=== PATIENT | female | born 1955 | race Caucasian/White ===

== ENCOUNTER → 2018-06-12 13:52 | Outpatient (CLI) | payer MEDICARE, MEDICAID, SELFPAY ==
[2018-06-12 14:18] LABS: Basophils % 0.3 % (0.1-2.0); Eosinophils % 0.1 % (0.1-12.0); Hemoglobin 14.3 g/dL (12.2-16.2); Lymphocytes # 2.8 K/mm3 (0.7-4.5); Mean Corpuscular HGB Conc 32.5 g/dL (31.8-35.4); Mean Corpuscular Hemoglobin 31.2 pg (27.0-31.2); Mean Platelet Volume 7.7 fl (7.4-10.4); Monocytes # 0.4 K/mm3 (0.1-1.0); Monocytes % 3.5 % (1.7-9.3); Neutrophils # 6.8 K/mm3 (1.8-7.8); Neutrophils % 68.1 % (37.0-80.0); Platelet Count 413 K/mm3 (142-424); Red Blood Count 4.58 M/mm3 (4.20-5.40); White Blood Count 9.9 K/mm3 (4.8-10.8)
[2018-06-12 14:41] LABS: Alanine Aminotransferase 24 U/L (12-78); Albumin Level 3.7 gm/dL (3.4-5.0); Alkaline Phosphatase 123 U/L (46-116); Anion Gap 16.8 mEq/L (5-15); Aspartate Amino Transferase 19 U/L (15-37); Bilirubin,Total 0.3 mg/dL (0.2-1.0); Blood Urea Nitrogen 10 mg/dL (7-18); Calcium 9.6 mg/dL (8.5-10.1); Carbon Dioxide 26 mmol/L (21.0-32.0); Chloride 104 mmol/L (98-107); Chol/HDL Ratio 3.5 (1-3.5); Cholesterol 180 mg/dL (140-200); Creatinine,Serum 0.78 mg/dL (0.55-1.02); Estimated Glomerular Filt Rate 74 ml/min (>60); GFR (African American) 90 ML/MIN (>60); Globulin 3.8 gm/dl (1.3-3.2); Glucose 104 mg/dL (74-106); HDL Cholesterol 52 mg/dL (29-89); LDL Cholesterol 95 mg/dL (0-130); Potassium 4.8 mmoL/L (3.5-5.1); Sodium 142 mmol/L (136-145); T4 (Thyroxine) 10.3 ug/dl (4.7-13.3); Thyroid Stimulating Hormone 0.41 uIU/ml (0.358-3.740); Total Protein,Serum 7.5 gm/dL (6.4-8.2); Triglycerides 167 mg/dL (30-200); VLDL Cholesterol 33 mg/dL (0-40)
[2018-06-13 07:15] LABS: Hep A Ab, IgM Negative (Negative); Hepatitis B Core Antibody IgM Negative (Negative); Hepatitis B Surface Antigen Negative (Negative)
[2018-06-13 07:46] LABS: Hepatitis C Antibody <0.1 s/co ratio (0.0-0.9); Vitamin D 25 Hydroxy 19.2 ng/mL (30.0-100.0)
== END ==
PROVIDERS: Visit Provider Emergency Medicine
DX: R53.83 Other fatigue (principal); R11.0 Nausea; K21.9 Gastro-esophageal reflux disease without esophagitis; I10 Essential (primary) hypertension; F41.9 Anxiety disorder, unspecified; E55.9 Vitamin D deficiency, unspecified; Z72.0 Tobacco use
CPT/HCPCS: 80053; 80061; 80074; 82652; 84436; 84443; 85025

== ENCOUNTER → 2018-07-19 13:11 | Outpatient (CLI) | payer MEDICARE, MEDICAID, SELFPAY ==
--- NOTE | 2018-07-19 13:23 | XR_ITS ---
EXAM: XR cervical spine 5V HISTORY: ITS.REASON: neck pain ORDERING PHYSICIAN: Honorio Rockwell MD PATIENT AGE: 63 years COMPARISON: None FINDINGS: Normal alignment. No fracture or dislocation. No lytic or blastic change. There is mild degenerative disc disease at C5-C6. Normal alignment. There is mild foraminal narrowing on the left C5-C6. The head is slightly tilted to the right with mild cervical curvature on the left. Mild facet arthritic changes are present at C5-C6. IMPRESSION: 1. Degenerative disc disease with mild left-sided foraminal narrowing at C5-C6
--- NOTE | 2018-07-19 13:23 | XR_ITS ---
XR shoulder LT min 2V HISTORY: ITS.REASON: shoulder pain ORDERING PHYSICIAN: Honorio Rockwell MD PATIENT AGE: 63 years Comparison: None FINDINGS: No fracture or dislocation. No lytic or blastic change. There is normal mineralization. The joint spaces are well-preserved. No significant degenerative/arthritic changes. No erosive changes evident. There is lucency involving the proximal to mid shaft of the medullary portion of the humerus. This may only be related to prominent intramedullary canal. Cannot exclude possibility of an intramedullary lesion. Center humerus films for further evaluation. IMPRESSION: 1. Negative shoulder. 2. Possible intramedullary lesion of the proximal humeral shaft. Consider humerus films for further evaluation
--- NOTE | 2018-07-19 13:23 | XR_ITS ---
XR chest 2V HISTORY: Pain ITS.REASON: neck/back pain ORDERING PHYSICIAN: Honorio Rockwell MD PATIENT AGE: 63 years COMPARISON: None FINDINGS: The cardiomediastinal silhouette and pulmonary vascularity are within normal limits. The lungs are clear without infiltrates, suspicious nodules, or pleural effusions. No acute bony abnormalities. IMPRESSION: Negative chest, no acute finding
--- NOTE | 2018-07-19 13:23 | XR_ITS ---
EXAM: XR lumbar spine min 4V HISTORY: Low back pain ITS.REASON: back pain ORDERING PHYSICIAN: Honorio Rockwell MD PATIENT AGE: 63 years COMPARISON: None FINDINGS: Minimal lumbar curvature convex right. There is mild degenerative disc disease L2-S1. Small anterior osteophyte noted superiorly at L5. There are facet arthritic changes at L4-L5 and L5-S1. Mild hypertrophic change involves the SI joints on both sides. No acute fracture or dislocation. No lytic or blastic change IMPRESSION: 1. Mild degenerative disc disease and facet arthritic change. 2. Hypertrophic change of the SI joints
== END ==
PROVIDERS: PCP Emergency Medicine; Visit Provider Emergency Medicine
DX: M25.512 Pain in left shoulder (principal); M54.9 Dorsalgia, unspecified; M54.2 Cervicalgia
CPT/HCPCS: 71046; 72050; 72110; 73030

== ENCOUNTER → 2018-08-13 08:47 | Outpatient (CLI) | payer MEDICARE, MEDICAID, SELFPAY ==
--- NOTE | 2018-08-13 08:54 | MM_ITS ---
MM Dig screening mamm BI w/CAD CAD Screening COMPARISON: None, this is baseline INDICATION: There is no personal or family history of breast cancer TECHNIQUE: Standard CC and MLO images were obtained. R2 CAD reviewed. FINDINGS: Scattered fibroglandular densities are seen throughout both breasts and the findings are fairly symmetrical bilaterally. There is a mole marker on each breast. There is no suspicious lesion and there are no suspicious microcalcifications. IMPRESSION: Fibrofatty parenchyma no suspicious lesion seen BI-RADS Category: 2 Benign Finding(s) RECOMMENDED FOLLOW-UP: 1YR - 1 YEAR FOLLOW-UP (A letter has been sent to the patient regarding results of the study.)
== END ==
PROVIDERS: PCP Emergency Medicine; Visit Provider Emergency Medicine
DX: Z12.31 Encounter for screening mammogram for malignant neoplasm of breast (principal)
CPT/HCPCS: 77067

== ENCOUNTER → 2018-08-15 14:59 | Outpatient (CLI) | payer MEDICARE, MEDICAID, SELFPAY ==
[2018-08-15 16:22] LABS: Amphetamine/Metha Screen,Urine Negative ng/mL (<1000); Barbiturates Screen,Urine Negative ng/mL (<200); Benzodiazepines Screen,Urine Negative ng/mL (<200); Cannabinoid Screen,Urine Negative ng/mL (<50); Cocaine Screen,Urine Negative ng/mL (<300); Methadone Screen,Urine Negative ng/mL (<300); Opiate Screen,Urine Negative ng/mL (<300); Phencyclidine Screen,Urine Negative ng/mL (<25)
== END ==
PROVIDERS: Visit Provider Emergency Medicine
DX: M54.5 Low back pain (principal)
CPT/HCPCS: 80305

== ENCOUNTER → 2018-10-15 13:24 | Outpatient (CLI) | payer MEDICARE, MEDICAID, SELFPAY ==
[2018-10-15 14:57] LABS: Amphetamine/Metha Screen,Urine Negative ng/mL (<1000); Barbiturates Screen,Urine Negative ng/mL (<200); Benzodiazepines Screen,Urine Positive ng/mL (<200); Cannabinoid Screen,Urine Negative ng/mL (<50); Cocaine Screen,Urine Negative ng/mL (<300); Methadone Screen,Urine Negative ng/mL (<300); Opiate Screen,Urine Negative ng/mL (<300); Phencyclidine Screen,Urine Negative ng/mL (<25)
[2018-11-18 15:08] LABS: Alprazolam Negative (Cutoff=100); Benzodiazepines Positive ng/mL (Cutoff=100); Clonazepam Negative (Cutoff=100); Flurazepam Negative (Cutoff=100); Lorazepam Negative (Cutoff=100); Midazolam Negative (Cutoff=100); Temazepam Positive (.); Triazolam Negative (Cutoff=100)
[2018-11-18 17:42] LABS: Opiates Negative ng/mL (Cutoff=100)
== END ==
PROVIDERS: Visit Provider Emergency Medicine
DX: M25.512 Pain in left shoulder (principal); M47.816 Spondylosis without myelopathy or radiculopathy, lumbar region; M54.16 Radiculopathy, lumbar region
CPT/HCPCS: 80305; 80346; 80361; G0480

== ENCOUNTER → 2018-12-10 13:55 | Outpatient (CLI) | payer MEDICARE, MEDICAID, SELFPAY ==
[2018-12-10 15:14] LABS: Amphetamine/Metha Screen,Urine Negative ng/mL (<1000); Barbiturates Screen,Urine Negative ng/mL (<200); Benzodiazepines Screen,Urine Positive ng/mL (<200); Cannabinoid Screen,Urine Negative ng/mL (<50); Cocaine Screen,Urine Negative ng/mL (<300); Methadone Screen,Urine Negative ng/mL (<300); Opiate Screen,Urine Negative ng/mL (<300); Phencyclidine Screen,Urine Negative ng/mL (<25)
[2018-12-16 22:14] LABS: Alprazolam Negative (Cutoff=100); Benzodiazepines Positive ng/mL (Cutoff=100); Clonazepam Negative (Cutoff=100); Flurazepam Negative (Cutoff=100); Lorazepam Negative (Cutoff=100); Midazolam Negative (Cutoff=100); Temazepam Positive (.); Triazolam Negative (Cutoff=100)
[2018-12-16 22:48] LABS: Opiates Negative ng/mL (Cutoff=100)
== END ==
PROVIDERS: Visit Provider Emergency Medicine
DX: M54.16 Radiculopathy, lumbar region (principal); Z79.899 Other long term (current) drug therapy
CPT/HCPCS: 80305; 80346; 80361; G0480

== ENCOUNTER → 2018-12-19 15:39 | Outpatient (CLI) | payer MEDICARE, MEDICAID, SELFPAY ==
--- NOTE | 2018-12-19 15:41 | MR_ITS ---
PROCEDURE: MR LUMBAR SPINE WO CON CLINICAL INDICATION: back pain COMPARISON: [id number] XR lumbar spine min 4V from 07/19/2018 TECHNIQUE: Standard multiplanar multiecho sequences are performed without contrast. 3-D MIP and myelographic images are also rendered and reviewed FINDINGS: Normal alignment. Spinal cord ends at the T12-L1 level. L1-L2: Unremarkable. L2-L3: Mild concentric bulging disc with mild facet ligamentum hypertrophy. L3-L4: Mild facet ligamentum hypertrophy with mild left foraminal narrowing L4-5: Bulging disc along with facet ligamentum hypertrophy with canal stenosis and moderate bilateral lateral recess narrowing and bilateral foraminal narrowing L5-S1: Mild bulging disc with mild facet ligamentum hypertrophy with mild left lateral recess narrowing and mild bilateral foraminal narrowing. IMPRESSION: Mild multilevel lumbar spondylosis. Please see above for detailed description at each level Bulging disc with ligamentum hypertrophy and canal stenosis at L4-5 with bilateral lateral recess and foraminal narrowing. The canal at this area measures approximately 9 mm Dictated by: Reg Carvajal MD 12/20/2018 09:46 Signed by: <Electronically signed by Reg Carvajal MD in [place]> 12/20/2018 09:46
== END ==
PROVIDERS: PCP Emergency Medicine; Visit Provider Emergency Medicine
DX: M54.16 Radiculopathy, lumbar region (principal); M54.5 Low back pain
CPT/HCPCS: 72148; 76376

== ENCOUNTER → 2019-02-08 17:38 | Outpatient (CLI) | payer MEDICARE, MEDICAID, SELFPAY ==
[2019-02-08 18:57] LABS: Amphetamine/Metha Screen,Urine Negative ng/mL (<1000); Barbiturates Screen,Urine Negative ng/mL (<200); Benzodiazepines Screen,Urine Positive ng/mL (<200); Cannabinoid Screen,Urine Negative ng/mL (<50); Cocaine Screen,Urine Negative ng/mL (<300); Methadone Screen,Urine Negative ng/mL (<300); Opiate Screen,Urine Negative ng/mL (<300); Phencyclidine Screen,Urine Negative ng/mL (<25)
== END ==
PROVIDERS: Visit Provider Emergency Medicine
DX: M54.16 Radiculopathy, lumbar region (principal)
CPT/HCPCS: 80305

== ENCOUNTER → 2019-02-25 12:41 | Outpatient (POV) | payer MEDICARE, MEDICAID, SELFPAY ==
[2019-02-25 13:11] VITALS: BP 189/98; PULSE 76; RESP 18; O2SAT 98; BMI 19.0
--- NOTE | 2019-02-26 09:36 | HMH.PMCON ---
Assessment and Plan (1) Spinal stenosis Current visit: Yes Status: Chronic Category: Medical Code(s): M48.00 - Spinal stenosis, site unspecified (2) DDD (degenerative disc disease), lumbar Current visit: No Status: Chronic Category: Medical Code(s): M51.36 - Other intervertebral disc degeneration, lumbar region - Assessment and plan all Dx Assessment and Plan for all problems:: Patient is uninterested in any interventional treatment at this time. Patient is welcome to return if decides to pursue any interventional treatments. We did give her information in regards to the therapies that we offer. Dr. Carranza has reviewed this note and agrees with this plan of care. This note was dictated using voice recognition software and may contain errors or omissions HPI - Data of Consult Consult date: 02/25/19 Requesting Physician: Chiara Crowell APRN Primary Care Provider: Honorio Rockwell MD - Consult Narrative Reason for consult: Back pain History of present illness: Ms. Britt is a 63 year old female who presents today for consultation in regards to her low back pain. Patient has a recent MRI showing ligament of flavum hypertrophy and spinal stenosis. Patient also has lumbar spondylosis. Patient states that she has pain when she standing and walking. I discussed with her common symptomology of spinal stenosis. I also discussed with her our options in regards to treating this including epidurals, the mild procedure, the vertical flex procedure. Patient states that she is uninterested in any of this at this time. She would like to continue taking her Percocet from her primary care physician. Patient has not completed physical therapy. She is uninterested in conservative means of treatment of her pain. CC: Chiara Crowell APRN [facility] History I have reviewed the patient's past medical history: Yes Medical History: Reports:: Anxiety, Deep Vein Thrombosis, Gastroesophageal Reflux Disease(GERD), Hypertension *Have you ever received a pneumonia vaccine?: No *Have you received a flu vaccine this season?: No Other Surgeries: Yes: Other Amputation: No Fractures: No - *Social History Smoking Status: Current every day smoker Tobacco Type: cigarettes # Packs/Day (cigarettes): 1 Alcohol Intake: never Substance Use Type: opiates *Occupational Status:: other Housing: house Household Members: spouse, other *Travel in the last 8 weeks: None - Psychiatric History Pschychiatric History:: Reports:: Anxiety Family Hx:: Cancer, Heart Attack Review of Systems - Review of Systems ROS General: no recent weight change, no fever, no sleep disturbances Respiratory: no cough, no shortness of air, no recurring pulmonary infections Cardiovascular/Peripheral Vascular: No chest pain, No palpitations, no edema, no shortness of breath. Gastrointestinal: no new onset incontinence, normal bowel movements reported Genitourinary: no new onset incontinence Musculoskeletal: Back pain Psychiatric: normal mood/ affect, Neurological: [denies new onset weakness in extremities], [denies new onset balance issues] Meds Home Medications Medication Instructions Recorded Confirmed Type cholecalciferol (vitamin D3) 1,000 1,000 unit PO DAILY 90 Days #90 cap 06/13/18 02/08/19 Rx unit capsule ergocalciferol (vitamin D2) 50,000 50,000 unit PO QWEEK 90 Days #14 06/13/18 02/08/19 Rx unit capsule cap meloxicam 7.5 mg tablet 7.5 mg PO DAILY #30 tab 07/11/18 02/08/19 Rx lisinopril 20 mg tablet 20 mg PO DAILY #90 tab 12/11/18 02/08/19 Rx metoprolol tartrate 25 mg tablet 25 mg PO BID #180 tab 12/11/18 02/08/19 Rx gabapentin 400 mg capsule 400 mg PO TID #90 cap 02/08/19 02/08/19 Rx oxycodone-acetaminophen 5 mg-325 1 tab PO BID PRN #60 tab 02/08/19 02/08/19 Rx mg tablet hydroxyzine pamoate 25 mg capsule 25 mg PO BID #60 cap 02/25/19 Rx ranitidine 150 mg tablet 150 mg PO BID #180 tab 02/25/19 Rx Allergies Aller
--- NOTE | 2019-02-26 09:39 | P.CONS_ITS ---
Assessment and Plan (1) Spinal stenosis Current visit: Yes Status: Chronic Category: Medical Code(s): M48.00 - Spinal stenosis, site unspecified (2) DDD (degenerative disc disease), lumbar Current visit: No Status: Chronic Category: Medical Code(s): M51.36 - Other intervertebral disc degeneration, lumbar region - Assessment and plan all Dx Assessment and Plan for all problems:: Patient is uninterested in any interventional treatment at this time. Patient is welcome to return if decides to pursue any interventional treatments. We did give her information in regards to the therapies that we offer. Dr. Carranza has reviewed this note and agrees with this plan of care. This note was dictated using voice recognition software and may contain errors or omissions HPI - Data of Consult Consult date: 02/25/19 Requesting Physician: Chiara Crwoell APRN Primary Care Provider: Honorio Rockwell MD - Consult Narrative Reason for consult: Back pain History of present illness: Ms. Britt is a 63 year old female who presents today for consultation in regards to her low back pain. Patient has a recent MRI showing ligament of flavum hypertrophy and spinal stenosis. Patient also has lumbar spondylosis. Patient states that she has pain when she standing and walking. I discussed with her common symptomology of spinal stenosis. I also discussed with her our options in regards to treating this including epidurals, the mild procedure, the vertical flex procedure. Patient states that she is uninterested in any of this at this time. She would like to continue taking her Percocet from her primary care physician. Patient has not completed physical therapy. She is uninterested in conservative means of treatment of her pain. CC: Chiara Crowell APRN [facility] History I have reviewed the patient's past medical history: Yes Medical History: Reports:: Anxiety, Deep Vein Thrombosis, Gastroesophageal Reflux Disease(GERD), Hypertension *Have you ever received a pneumonia vaccine?: No *Have you received a flu vaccine this season?: No Other Surgeries: Yes: Other Amputation: No Fractures: No - *Social History Smoking Status: Current every day smoker Tobacco Type: cigarettes # Packs/Day (cigarettes): 1 Alcohol Intake: never Substance Use Type: opiates *Occupational Status:: other Housing: house Household Members: spouse, other *Travel in the last 8 weeks: None - Psychiatric History Pschychiatric History:: Reports:: Anxiety Family Hx:: Cancer, Heart Attack Review of Systems - Review of Systems ROS General: no recent weight change, no fever, no sleep disturbances Respiratory: no cough, no shortness of air, no recurring pulmonary infections Cardiovascular/Peripheral Vascular: No chest pain, No palpitations, no edema, no shortness of breath. Gastrointestinal: no new onset incontinence, normal bowel movements reported Genitourinary: no new onset incontinence Musculoskeletal: Back pain Psychiatric: normal mood/ affect, Neurological: [denies new onset weakness in extremities], [denies new onset balance issues] Meds Home Medications Medication Instructions Recorded Confirmed Type cholecalciferol (vitamin D3) 1,000 1,000 unit PO DAILY 90 Days #90 cap 06/13/18 02/08/19 Rx unit capsule ergocalciferol (vitamin D2) 50,000 50,000 unit PO QWEEK 90 Days #14 06/13/18 02/08/19 Rx unit capsule cap meloxicam 7.5 mg tablet 7.5 mg P
== END ==
PROVIDERS: PCP Emergency Medicine; Visit Provider Clinical Nurse Specialist Family Health
DX: M48.00 Spinal stenosis, site unspecified (principal); M51.36 Other intervertebral disc degeneration, lumbar region
CPT/HCPCS: 99202

== ENCOUNTER → 2019-03-06 14:20 | Outpatient (CLI) | payer MEDICARE, MEDICAID, SELFPAY ==
[2019-03-06 15:13] LABS: Amphetamine/Metha Screen,Urine Negative ng/mL (<1000); Barbiturates Screen,Urine Negative ng/mL (<200); Benzodiazepines Screen,Urine Negative ng/mL (<200); Cannabinoid Screen,Urine Negative ng/mL (<50); Cocaine Screen,Urine Negative ng/mL (<300); Methadone Screen,Urine Negative ng/mL (<300); Opiate Screen,Urine Negative ng/mL (<300); Phencyclidine Screen,Urine Negative ng/mL (<25)
[2019-03-14 23:08] LABS: Oxycodone Positive (.); Oxymorphone Positive (.)
[2019-03-15 06:48] LABS: Oxycodone Confirm 376 ng/mL (Cutoff=100); Oxymorphone Confirm 691 ng/mL (Cutoff=100)
== END ==
PROVIDERS: Visit Provider Emergency Medicine
DX: Z79.899 Other long term (current) drug therapy (principal)
CPT/HCPCS: 80305; 80365

== ENCOUNTER → 2019-04-03 13:31 | Outpatient (CLI) | payer MEDICARE, MEDICAID, SELFPAY ==
[2019-04-03 14:01] LABS: Amphetamine/Metha Screen,Urine Negative ng/mL (<1000); Barbiturates Screen,Urine Negative ng/mL (<200); Benzodiazepines Screen,Urine Negative ng/mL (<200); Cannabinoid Screen,Urine Negative ng/mL (<50); Cocaine Screen,Urine Negative ng/mL (<300); Methadone Screen,Urine Negative ng/mL (<300); Opiate Screen,Urine Negative ng/mL (<300); Phencyclidine Screen,Urine Negative ng/mL (<25)
[2019-04-09 16:06] LABS: Oxycodone NEGATIVE; Oxymorphone NEGATIVE
== END ==
PROVIDERS: Visit Provider Emergency Medicine
DX: M54.16 Radiculopathy, lumbar region (principal); Z79.899 Other long term (current) drug therapy
CPT/HCPCS: 80305; 80365

== ENCOUNTER → 2019-04-18 07:42 | Outpatient (CLI) | payer MEDICARE, MEDICAID, SELFPAY ==
--- NOTE | 2019-04-18 07:43 | CA_ITS ---
APPROVED REPORT Assessment Rn: Lizbeth Washington RVT Study Quality: Good Indications: Hypertension Risk Factors Hypertension Renal Artery Doppler Origin (R) 93.4/ cm/sec Proximal (R) 107.9/ cm/sec Mid (R) 118.2/ cm/sec Distal (R) 82.0/ cm/sec Renal Aorta Ratio (R) 0.66 Segmental A. (R) 43.9/14.9 cm/sec RI: 0.66 Segmental A. Sup (R) 43.9/14.9 cm/sec Segmental A. Mid (R) 43.6/11.4 cm/sec Segmental A. Inf (R) 41.5/10.4 cm/sec Origin (L) 130.1/ cm/sec Proximal (L) 152.0/ cm/sec Mid (L) 92.4/ cm/sec Distal (L) 113.7/ cm/sec Renal Aorta Ratio (L) 0.85 Segmental A. (L) 59.7/23.3 cm/sec RI: 0.60 Segmental A. Sup (L) 53.0/17.1 cm/sec Segmental A. Mid (L) 59.7/23.3 cm/sec Segmental A. Inf (L) 39.2/15.8 cm/sec Renal Measurements Kidney Size (R) 9.1x6.5 cm Cortical Thickness (R) 1.0 cm Kidney Size (L) 8.2x4.5 cm Cortical Thickness (L) 1.4 cm Conclusion Study suggests no evidence of bilateral renal artery stenosis. There is a 1.6cm cyst lower pole of left kidney. Electronically signed by : Reg Carvajal MD 04/19/2019 17:15:42
== END ==
PROVIDERS: PCP Emergency Medicine; Visit Provider Emergency Medicine
DX: I10 Essential (primary) hypertension (principal)
CPT/HCPCS: 93976

== ENCOUNTER → 2019-05-08 13:22 | Outpatient (CLI) | payer MEDICARE, MEDICAID, SELFPAY ==
[2019-05-08 15:43] LABS: Amphetamine/Metha Screen,Urine Negative ng/mL (<1000); Barbiturates Screen,Urine Negative ng/mL (<200); Benzodiazepines Screen,Urine Negative ng/mL (<200); Cannabinoid Screen,Urine Negative ng/mL (<50); Cocaine Screen,Urine Negative ng/mL (<300); Methadone Screen,Urine Negative ng/mL (<300); Opiate Screen,Urine Positive ng/mL (<300); Phencyclidine Screen,Urine Negative ng/mL (<25)
== END ==
PROVIDERS: Visit Provider Emergency Medicine
DX: M54.16 Radiculopathy, lumbar region (principal)
CPT/HCPCS: 80305

== ENCOUNTER → 2019-06-17 10:44 | Outpatient (POV) | payer MEDICARE, MEDICAID, SELFPAY ==
[2019-06-17 11:09] VITALS: BP 143/91; PULSE 85; RESP 18; O2SAT 99; BMI 20.1
--- NOTE | 2019-06-17 11:39 | HMH.PAINSOAP ---
[facility] Pain Management SOAP Note Subjective:: Patient is a pleasant 64-year-old white female who presents today for follow-up. She is being treated for low back pain with lumbar radiculopathy symptoms. Patient was seen in the clinic in the past for complaints of low back pain with radiation into her bilateral lower extremities. She did have an MRI that did show ligamentum flavum hypertrophy, spinal stenosis and she did display neurogenic claudication symptoms at that time. Unfortunately, the patient is not interested in any type of interventional procedures at that time. She is back today with consideration of possible injections. She rates her pain a 7 out of 10 today. Her pain is worse with standing and walking and does improve with sitting. She has been taking anti-inflammatories and has had physical therapy for greater than 6 weeks, most notably within the last 2 months. She does continue with a home stretching program. Review of Systems General: No recent weight changes, no fever, no sleep disturbances Respiratory: No cough, no shortness of air, no recurring pulmonary infections Cardiovascular/peripheral vascular: No chest pain, no palpitations, no edema, no shortness of breath Gastrointestinal: No new onset incontinence, normal bowel movements reported Genitourinary: No new onset incontinence Musculoskeletal: Low back pain Psychiatric: Normal mood/affect Neurological: [Denies weakness in extremities], [denies balance issues] Objective:: Physical exam General: Alert and oriented x3, no acute distress, pleasant and cooperative, [on room air] Lungs: Respirations even and unlabored, symmetrical chest expansion Eyes: PERRL Musculoskeletal: Flexion and extension of lumbar spine somewhat guarded secondary to pain, deep tendon reflexes normal, strength in upper and lower extremities [5/5], slightly antalgic gait noted Neurological: Speech clear, speech language pathologist prn equal, no gross sensory deficit Assessment:: Degenerative disc disease lumbar spine with lumbar radiculopathy symptoms, spinal stenosis with neurogenic claudication symptoms Plan:: Patient I had a long discussion concerning epidural steroid injection. She does have some reservation concerning injections, however, the patient would like to proceed with a lumbar epidural steroid injection at L4-L5. She says that she needs to get some type of relief. She is not on any anticoagulation therapy. She is continue with anti-inflammatories and a home stretching program. We will see her back in the clinic after her injection to reassess her symptoms. Patient has been instructed to contact clinic if she has any concerns before her next appointment. Dr. Carranza has reviewed this note and agrees with this plan of care. This note was dictated using voice recognition software and make contain errors or omissions. [facility] History I have reviewed the patient's past medical history: Yes Medical History: Reports:: Anxiety, Deep Vein Thrombosis, Gastroesophageal Reflux Disease(GERD), Hypertension *Have you ever received a pneumonia vaccine?: Yes *Have you received a flu vaccine this season?: Yes Other Surgeries: Yes: Other Amputation: No Fractures: No - *Social History Smoking Status: Current every day smoker Tobacco Type: cigarettes # Packs/Day (cigarettes): 1 Alcohol Intake: never Substance Use Type: opiates *Occupational Status:: other Housing: house Household Members: spouse, other *Travel in the last 8 weeks: None - Psychiatric History Pschychiatric History:: Reports:: Anxiety Family Hx:: Cancer, Heart Attack
== END ==
PROVIDERS: PCP Emergency Medicine; Visit Provider Clinical Nurse Specialist Family Health
DX: M51.16 Intervertebral disc disorders with radiculopathy, lumbar region (principal); M48.062 Spinal stenosis, lumbar region with neurogenic claudication
CPT/HCPCS: 99212

== ENCOUNTER → 2019-06-25 13:22 | Outpatient (CLI) | payer MEDICARE, MEDICAID, SELFPAY ==
[2019-06-25 13:33] LABS: Basophils % 0.5 % (0.1-2.0); Eosinophils % 0.1 % (0.1-12.0); Hematocrit 41.9 % (37.0-47.0); Hemoglobin 13.3 g/dL (12.2-16.2); Lymphocytes # 3.3 K/mm3 (0.7-4.5); Lymphocytes % 45.4 % (10-50); Mean Corpuscular HGB Conc 31.8 g/dL (31.8-35.4); Mean Corpuscular Hemoglobin 30.6 pg (27.0-31.2); Mean Corpuscular Volume 96.1 fl (81-99); Mean Platelet Volume 9.4 fl (7.4-10.4); Monocytes # 0.4 K/mm3 (0.1-1.0); Monocytes % 4.8 % (1.7-9.3); Neutrophils # 3.6 K/mm3 (1.8-7.8); Neutrophils % 49.2 % (37.0-80.0); Platelet Count 458 K/mm3 (142-424); Red Blood Count 4.36 M/mm3 (4.20-5.40); Red Cell Distribution Width 15.3 % (11.5-17.5); White Blood Count 7.4 K/mm3 (4.8-10.8)
[2019-06-25 13:53] LABS: Alanine Aminotransferase 12 U/L (12-78); Albumin Level 4.3 g/dl (3.5-5.0); Albumin/Globulin Ratio 1.6 (1.1-1.8); Alkaline Phosphatase 80 U/L (38-126); Anion Gap 10.8 mEq/L (5-15); Aspartate Amino Transferase 25 U/L (14-36); Bilirubin,Total 0.2 mg/dl (0.2-1.3); Blood Urea Nitrogen 14 mg/dl (7-17); Carbon Dioxide 28 mmol/L (22.0-30.0); Chloride 105 mmol/L (98-107); Chol/HDL Ratio 3.1 (1-3.5); Cholesterol 200 mg/dl (140-200); Estimated Glomerular Filt Rate 84 ml/min (>60); GFR (African American) 101 ML/MIN (>60); Globulin 2.7 g/dL (1.3-3.2); Glucose 101 mg/dl (74-100); HDL Cholesterol 65 mg/dl (40-60); Potassium 4.8 mmoL/L (3.5-5.1); Sodium 139 mmol/L (136-145); Triglycerides 169 mg/dl (30-150); VLDL Cholesterol 34 mg/dL (0-40)
[2019-06-25 14:04] LABS: Direct LDL Cholesterol 98.94 mg/dL (100-129)
[2019-06-25 14:10] LABS: Free T4 (Free Thyroxine) 1.35 ng/dl (0.78-2.19)
[2019-06-25 14:24] LABS: Thyroid Stimulating Hormone 3.17 uIU/mL (0.465-4.68)
[2019-06-25 14:51] LABS: Barbiturates Screen,Urine Negative ng/ml (<200); Benzodiazepines Screen,Urine Negative ng/ml (<200)
[2019-06-25 14:52] LABS: Cannabinoid Screen,Urine Negative ng/ml (<50); Cocaine Screen,Urine Negative ng/ml (<300)
[2019-06-25 14:53] LABS: Methadone Screen,Urine Negative ng/ml (<300)
[2019-06-25 14:54] LABS: Opiate Screen,Urine Negative ng/ml (<300); Phencyclidine Screen,Urine Negative ng/ml (<25)
[2019-06-25 15:26] LABS: Amphetamine/Metha Screen,Urine Negative ng/ml (<1000)
[2019-06-27 06:40] LABS: Vitamin D 25 Hydroxy 13.4 ng/mL (30.0-100.0)
[2019-07-01 07:05] LABS: Oxycodone (GC/MS) 273 ng/mL (Cutoff=100)
[2019-07-01 10:03] LABS: Opiates Negative (Cutoff=100); Oxymorphone (GC/MS) 856 ng/mL (Cutoff=100)
== END ==
PROVIDERS: Visit Provider Emergency Medicine
DX: M54.16 Radiculopathy, lumbar region (principal); I10 Essential (primary) hypertension; Z79.899 Other long term (current) drug therapy; E55.9 Vitamin D deficiency, unspecified
CPT/HCPCS: 80053; 80061; 80305; 80361; 80365; 82652; 84439; 84443; 85025; G0480

== ENCOUNTER → 2019-12-26 11:40 | Outpatient (POV) | payer MEDICARE, MEDICAID, SELFPAY ==
[2019-12-26 12:08] VITALS: BP 130/74; PULSE 62; RESP 18; O2SAT 98; BMI 20.1
--- NOTE | 2019-12-26 12:51 | P.CONS_ITS ---
[facility] Pain Management SOAP Note Subjective:: Patient is a 64-year-old white female who presents today for follow-up. This is her third visit to our office. Patient states she is still on interested in interventional means of treatment in regards to her pain she rates her pain a 6 out of 10. 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 Patient and I discussed the minimally invasive lumbar decompression along with epidural injections. She is uninterested. She is currently on Percocet from her primary care physician. She has not recently been to physical therapy. She is not interested in any other conservative means of treatment other than oral narcotic medication. Patient states that she cannot stand for over 15 minutes and she cannot walk for over 50 feet without sitting down secondary to pain. ROS General: no recent weight change, no fever, no sleep disturbances Respiratory: no cough, no shortness of air, no recurring pulmonary infections Cardiovascular/Peripheral Vascular: No chest pain, No palpitations, no edema, no shortness of breath. Gastrointestinal: no new onset incontinence, normal bowel movements reported Genitourinary: no new onset incontinence Musculoskeletal: Back pain, leg pain Psychiatric: normal mood/ affect, [denies depression], [denies anxiety] Neurological: Weakness in bilateral lower extremities when walking and standing, [denies new onset balance issues] Objective:: Physical Exam General: Alert and oriented x3, no acute distress, pleasant and cooperative, [on room air] Lungs: Resps E/U, Symmetrical chest expansion, Eyes: PERRL Musculoskeletal: Flexion and extension of lumbar spine somewhat guarded secondary to pain, deep tendon reflexes normal, strength in upper and lower extremities [5/5], gait noted Neurological: speech clear, campus police officer equal, no gross sensory deficits Assessment:: Degenerative disc disease lumbar spine lumbar radiculopathy spinal stenosis and neurogenic claudication, ligamentum flavum hypertrophy Plan:: This is the patient's third visit to our office she still is uninterested in interventional pain management. I discussed with her that we are available if she would like to return to discuss treatment. I do believe she would benefit greatly from a lumbar epidural steroid injection along with a minimally invasive lumbar decompression potentially in the future. At this time patient only wants to take oral narcotic medications as a plan of care. She is not had physical therapy recently. Dr. Carranza has reviewed this note and agrees with this plan of care. This note was dictated using voice recognition software and may contain errors or omissions [facility] History I have reviewed the patient's past medical history: Yes Medical History: Reports:: Anxiety, Deep Vein Thrombosis, Gastroesophageal Reflux Disease(GERD), Hypertension *Have you ever received a pneumonia vaccine?: No *Have you received a flu vaccine this season?: No Other Surgeries: Yes: Colonoscopy, Other Amputation: No Fractures: No - *Social History Smoking Status: Current every day smoker Tobacco Type: cigarettes # Packs/Day (cigarettes): 1 Alcohol Intake: never Substance Use Type: opiates, crack/cocaine *Occupational Status:: other Housing: house Household Members: spouse, other *Travel in the last 8 weeks: None - Psychiatric History Pschychiatric History:: Reports:: Anxiety Family Hx:: Cancer, Heart Attack
== END ==
PROVIDERS: PCP Emergency Medicine; Visit Provider Clinical Nurse Specialist Family Health
DX: M48.062 Spinal stenosis, lumbar region with neurogenic claudication (principal); M51.16 Intervertebral disc disorders with radiculopathy, lumbar region; M46.06 Spinal enthesopathy, lumbar region
CPT/HCPCS: 99212

== ENCOUNTER → 2020-02-26 11:02 | Outpatient (CLI) | payer MEDICARE, MEDICAID, SELFPAY ==
[2020-02-26 12:05] VITALS: PULSE 78; PULSE 80
== END ==
PROVIDERS: PCP Emergency Medicine; Visit Provider Emergency Medicine
DX: R06.00 Dyspnea, unspecified (principal)
CPT/HCPCS: 94060; 94618; 94640; 94727; 94729

== ENCOUNTER → 2020-03-12 11:04 | Outpatient (CLI) | payer MEDICARE, MEDICAID, SELFPAY ==
--- NOTE | 2020-03-12 11:18 | CT_ITS ---
PROCEDURE: CT LUNG SCREENING CLINICAL INDICATION: ldct Current smoker 30 pack year smoking history COMPARISON: No exams were available for comparison TECHNIQUE: The exam was performed on a GE Light Speed [address] scanner using 2.90 mGy CTDI. A low dose helical CT CHEST was performed on a multi-detector scanner. All CT scans at the facility use one or more dose reduction, viz: automated exposure control, ma/kV adjustment per patient size (including targeted exams where dose is matched to indication, i.e. head), or iterative reconstruction technique. The LDCT was performed in a facility that meets the criteria for the screening program. Data regarding this exam was submitted to ACR which is an approved registry. The order for this exam indicates that it came as a result of a lung cancer screening counseling shard decision-making visit that included all the elements required of such a visit including smoking cessation. The radiologist interpreting this exam meets the CMS criteria for the LDCT lung cancer screening program. The exam is reported using the Lung-RADS classification scale and reported to the ACR registry. NOTE: This study was performed for the specific purposes of lung cancer screening and is not an alternative to diagnostic chest CT. RADIATION DOSE: CTDI vol(CT dose Index-volume) = 2.90mG DLP (Dose Length Product) = 96.38 mGcm FINDINGS: COPD changes with scattered areas of scarring. Scattered ill-defined opacities are present in the upper lobes nonspecific and may be inflammatory or infectious. Scarring is present in the lingula and apices. There is on the OTHER FINDINGS: Coronary artery calcifications. There is minimal wedging of T5 and T6 which may be chronic... IMPRESSION: Lung-RADS Category 3 Probably Benign Follow-up: [address] Chest without and with contrast regarding the multiple ill-defined opacities in the upper lobes. Dictated by: Reg Carvajal MD 03/28/2020 15:04 Reg Carvajal MD in [place] 03/28/2020 15:04
== END ==
PROVIDERS: PCP Emergency Medicine; Visit Provider Internal Medicine Pulmonary Disease
DX: Z87.891 Personal history of nicotine dependence (principal); Z12.2 Encounter for screening for malignant neoplasm of respiratory organs

== ENCOUNTER → 2020-08-03 14:47 | Outpatient (CLI) | payer MEDICARE, MEDICAID, SELFPAY ==
[2020-08-03 15:04] LABS: Amphetamine/Metha Screen,Urine Negative ng/ml (<1000)
[2020-08-03 15:05] LABS: Barbiturates Screen,Urine Negative ng/ml (<200); Benzodiazepines Screen,Urine Negative ng/ml (<200)
[2020-08-03 15:06] LABS: Cannabinoid Screen,Urine Negative ng/ml (<50)
[2020-08-03 15:07] LABS: Cocaine Screen,Urine Negative ng/ml (<300); Methadone Screen,Urine Negative ng/ml (<300)
[2020-08-03 15:08] LABS: Opiate Screen,Urine Negative ng/ml (<300); Phencyclidine Screen,Urine Negative ng/ml (<25)
== END ==
PROVIDERS: Visit Provider Emergency Medicine
DX: M54.16 Radiculopathy, lumbar region (principal)
CPT/HCPCS: 80305

== ENCOUNTER → 2020-09-04 07:29 | Outpatient (CLI) | payer MEDICARE, MEDICAID, SELFPAY ==
--- NOTE | 2020-09-04 | CA_ITS ---
APPROVED REPORT Exam: Pharmacologic Technologist: tiana hudosn, Ht: 5 ft 2 in Wt: 113 lbs BSA: 1.50 m2 HR: 66 bpm BP: 166/93 mmHg Rhythm: NSR Indications: CP Medical History Medications: Amlodipine,,,,, Lisinopril,,,,, Omeprazole,,,,, Metoprolol,,,,, Gabapentin,,,,, Albuterol,,,,, Vitamin D,,,,, OxYCODONE,,,,, PaROXETINE,,,,, FluTICASONE,,,,, Hydroxyzine,,,,, Allergies: NKA Cardiac Risk Factors: HTN, Hyperlipidemia, Smoking Stress Test Details Test: LEXISCAN HR Resting HR: 69 bpm Max Heart Rate (APMHR): 153.401742 bpm Max HR Achieved: 115 bpm Target HR (85% APMHR): 130.846578 bpm % of APMHR: 75.16 Recovery HR: 88 bpm BP Resting BP: 166/93 mmHg Max BP: 175/97 mmHg Recovery BP: 173.0/99.0 mmHg ECG Resting ECG: NSR Clinical Exercise duration: 04:01 min Highest Stage Achieved: Exercise capacity: 1.0 METs Stress ECG Conclusion No chest pain. No arrhythmia or ectopy. Less than 1.5mm ST Segment changes. Non-diagnostic. Electronically signed by : Jeramy Cruz, 09/04/2020 13:54:01
--- NOTE | 2020-09-04 07:29 | NM_ITS ---
APPROVED REPORT Exam: Nuclear Stress Test Indication: chest pain..short of breath..fatigue Patient Location: Outpatient Stress Tech: Alison Leah AL Tech:RON Manzano RT(R)(N) Ht: 5 ft 2 in Wt: 112 lbs Bra Size: 34b HR: 66 bpm BP: 166/93 mmHg BSA: 1.49 m2 BMI: 20.4 History: chest pain..short of breath..fatigue Procedure: Patient received a 0.4 mg of intravenous Lexiscan, resting heart rate 66 bpm, resting blood pressure 166/93 mmHg, with Lexiscan maximum heart rate achived was 92 bpm which is 85 % of the maximum predicted heart rate and blood pressure was 174/93 mmHg. With Lexiscan, patient denied any complaint of chest pain. Electrocardiogram Resting electrocardiogram showed sinus rhythm, with Lexiscan there is less than 1.[address] segment depression noted from the baseline EKG. The EKG portion of the Lexiscan is nondiagnostic. Cardiac Stress and Resting SPECT Images: Cardiac Stress and Resting SPECT images were obtained using technetium 99m Myoview 28.4 mCi stress and 10.26 mCi at rest. Gated SPECT for analysis of segmental wall motion and calculation of the ejection fraction also done. Prone images were also obtained. Cardiac stress and resting SPECT images show uniform myocardial activity without segmental perfusion abnormality, computer derived ejection fraction is 55% with no regional wall motion abnormality, right ventricle is normal size and contractility. Conclusion: 1. The EKG portion of the Lexiscan is nondiagnostic. 2. No scintigraphic evidence of reversible ischemia seen, computer derived ejection fraction is 55% with no regional wall motion abnormality, right ventricle is normal size and contractility. 3. Normal Lexiscan Myoview study. Electronically signed by : Jeramy Cruz, 09/04/2020 13:57:23
== END ==
PROVIDERS: PCP Emergency Medicine; Visit Provider Emergency Medicine
DX: R07.9 Chest pain, unspecified (principal)
CPT/HCPCS: 78452; 93017; A9502; J2785

== ENCOUNTER → 2020-09-25 14:08 | Outpatient (CLI) | payer MEDICARE, MEDICAID, SELFPAY ==
[2020-09-25 16:53] LABS: Amphetamine/Metha Screen,Urine Negative ng/ml (<1000)
[2020-09-25 16:54] LABS: Barbiturates Screen,Urine Negative ng/ml (<200)
[2020-09-25 16:55] LABS: Benzodiazepines Screen,Urine Negative ng/ml (<200); Cannabinoid Screen,Urine Positive ng/ml (<50)
[2020-09-25 16:56] LABS: Cocaine Screen,Urine Negative ng/ml (<300); Methadone Screen,Urine Negative ng/ml (<300)
[2020-09-25 16:57] LABS: Opiate Screen,Urine Positive ng/ml (<300)
[2020-09-25 16:58] LABS: Phencyclidine Screen,Urine Negative ng/ml (<25)
== END ==
PROVIDERS: Visit Provider Emergency Medicine
DX: M54.16 Radiculopathy, lumbar region (principal)
CPT/HCPCS: 80305

== ENCOUNTER → 2020-11-20 13:57 | Outpatient (CLI) | payer MEDICARE, MEDICAID, SELFPAY ==
[2020-11-20 14:31] LABS: Barbiturates Screen,Urine Negative ng/ml (<200); Benzodiazepines Screen,Urine Negative ng/ml (<200)
[2020-11-20 14:32] LABS: Amphetamine/Metha Screen,Urine Negative ng/ml (<1000)
[2020-11-20 14:33] LABS: Methadone Screen,Urine Negative ng/ml (<300)
[2020-11-20 14:34] LABS: Cannabinoid Screen,Urine Positive ng/ml (<50); Cocaine Screen,Urine Negative ng/ml (<300)
[2020-11-20 14:36] LABS: Opiate Screen,Urine Negative ng/ml (<300)
[2020-11-20 15:03] LABS: Phencyclidine Screen,Urine Negative ng/ml (<25)
== END ==
PROVIDERS: Visit Provider Emergency Medicine
DX: M54.16 Radiculopathy, lumbar region (principal)
CPT/HCPCS: 80305

== ENCOUNTER → 2021-01-15 14:45 | Outpatient (CLI) | payer MEDICARE, MEDICAID, SELFPAY ==
[2021-01-15 16:15] LABS: Benzodiazepines Screen,Urine Negative ng/ml (<200)
[2021-01-15 16:16] LABS: Amphetamine/Metha Screen,Urine Negative ng/ml (<1000); Barbiturates Screen,Urine Negative ng/ml (<200)
[2021-01-15 16:17] LABS: Methadone Screen,Urine Negative ng/ml (<300)
[2021-01-15 16:18] LABS: Cannabinoid Screen,Urine Negative ng/ml (<50); Cocaine Screen,Urine Negative ng/ml (<300)
[2021-01-15 16:19] LABS: Opiate Screen,Urine Positive ng/ml (<300)
[2021-01-15 16:20] LABS: Phencyclidine Screen,Urine Negative ng/ml (<25)
== END ==
PROVIDERS: Visit Provider Emergency Medicine
DX: M54.16 Radiculopathy, lumbar region (principal)
CPT/HCPCS: 80305

== ENCOUNTER → 2021-08-13 19:50 | Outpatient (CLI) | payer MEDICARE, MEDICAID, SELFPAY ==
[2021-08-13 14:03] LABS: Amphetamine/Metha Screen,Urine Negative ng/ml (<1000)
[2021-08-13 14:04] LABS: Barbiturates Screen,Urine Negative ng/ml (<200); Benzodiazepines Screen,Urine Negative ng/ml (<200)
[2021-08-13 14:05] LABS: Cannabinoid Screen,Urine Negative ng/ml (<50); Cocaine Screen,Urine Negative ng/ml (<300)
[2021-08-13 14:06] LABS: Methadone Screen,Urine Negative ng/ml (<300)
[2021-08-13 14:07] LABS: Opiate Screen,Urine Negative ng/ml (<300); Phencyclidine Screen,Urine Negative ng/ml (<25)
== END ==
PROVIDERS: PCP Emergency Medicine; Visit Provider Emergency Medicine
DX: Z79.899 Other long term (current) drug therapy (principal)
CPT/HCPCS: 80305

== ENCOUNTER → 2021-10-11 16:50 | Outpatient (CLI) | payer MEDICARE, MEDICAID, SELFPAY ==
[2021-10-11 14:20] LABS: Amphetamine/Metha Screen,Urine Negative ng/ml (<1000); Barbiturates Screen,Urine Negative ng/ml (<200)
[2021-10-11 14:21] LABS: Benzodiazepines Screen,Urine Negative ng/ml (<200); Cannabinoid Screen,Urine Positive ng/ml (<50)
[2021-10-11 14:22] LABS: Cocaine Screen,Urine Negative ng/ml (<300)
[2021-10-11 14:23] LABS: Methadone Screen,Urine Negative ng/ml (<300); Opiate Screen,Urine Negative ng/ml (<300)
[2021-10-11 14:24] LABS: Phencyclidine Screen,Urine Negative ng/ml (<25)
== END ==
PROVIDERS: Visit Provider Emergency Medicine
DX: Z79.899 Other long term (current) drug therapy (principal)
CPT/HCPCS: 80305

== ENCOUNTER → 2021-12-06 07:13 | Outpatient (CLI) | payer MEDICARE, MEDICAID, SELFPAY ==
[2021-12-06 17:27] LABS: Basophils # 0.1 K/mm3 (0-0.2); Eosinophils % 0.3 % (0.1-12.0); Hematocrit 46.5 % (37.0-47.0); Hemoglobin 14.1 g/dL (12.2-16.2); Lymphocytes # 3.2 K/mm3 (0.7-4.5); Lymphocytes % 47.3 % (10-50); Mean Corpuscular HGB Conc 30.2 g/dL (31.8-35.4); Mean Corpuscular Hemoglobin 28.4 pg (27.0-31.2); Mean Corpuscular Volume 94.1 fl (81-99); Mean Platelet Volume 9.7 fl (7.4-10.4); Monocytes # 0.3 K/mm3 (0.1-1.0); Monocytes % 4.7 % (1.7-9.3); Neutrophils # 3.1 K/mm3 (1.8-7.8); Neutrophils % 45.6 % (37.0-80.0); Platelet Count 388 K/mm3 (142-424); Red Blood Count 4.94 M/mm3 (4.20-5.40); Red Cell Distribution Width 18.1 % (11.5-17.5); White Blood Count 6.7 K/mm3 (4.8-10.8)
[2021-12-06 17:36] LABS: Alanine Aminotransferase 11 U/L (12-78); Albumin Level 4.2 g/dl (3.5-5.0); Albumin/Globulin Ratio 1.6 (1.1-1.8); Alkaline Phosphatase 89 U/L (38-126); Anion Gap 9.3 mEq/L (5-15); Aspartate Amino Transferase 27 U/L (14-36); Bilirubin,Total 0.3 mg/dl (0.2-1.3); Blood Urea Nitrogen 10 mg/dl (7-17); Calcium 9.5 mg/dl (8.4-10.2); Carbon Dioxide 28 mmol/L (22.0-30.0); Chloride 106 mmol/L (98-107); Chol/HDL Ratio 3.5 (1-3.5); Cholesterol 220 mg/dl (140-200); Estimated Glomerular Filt Rate 99 ml/min (>60); GFR (African American) 120 ML/MIN (>60); Globulin 2.6 g/dL (1.3-3.2); Glucose 108 mg/dl (74-100); HDL Cholesterol 62 mg/dl (40-60); Potassium 4.3 mmoL/L (3.5-5.1); Sodium 139 mmol/L (136-145); Total Protein,Serum 6.8 g/dl (6.3-8.2); Triglycerides 143 mg/dl (30-150); VLDL Cholesterol 29 mg/dL (0-40)
[2021-12-06 17:51] LABS: Free T4 (Free Thyroxine) 1.34 ng/dl (0.78-2.19)
[2021-12-06 17:52] LABS: 25-OH Vitamin D, Total 32.9 ng/mL (30-100)
[2021-12-06 18:05] LABS: Thyroid Stimulating Hormone 0.91 uIU/mL (0.465-4.68)
[2021-12-08 08:35] LABS: Direct LDL Cholesterol 126 mg/dL (100-129)
== END ==
PROVIDERS: PCP Emergency Medicine; Visit Provider Emergency Medicine
DX: E55.9 Vitamin D deficiency, unspecified (principal); I10 Essential (primary) hypertension; Z79.899 Other long term (current) drug therapy; Z68.1 Body mass index [BMI] 19.9 or less, adult
CPT/HCPCS: 80053; 80061; 82306; 84439; 84443; 85025

== ENCOUNTER → 2022-02-04 09:40 | Outpatient (CLI) | payer MEDICARE, MEDICAID, SELFPAY ==
[2022-02-04 19:03] LABS: Amphetamine/Metha Screen,Urine Negative ng/ml (<1000)
[2022-02-04 19:04] LABS: Barbiturates Screen,Urine Negative ng/ml (<200)
[2022-02-04 19:07] LABS: Benzodiazepines Screen,Urine Negative ng/ml (<200); Cocaine Screen,Urine Negative ng/ml (<300)
[2022-02-04 19:08] LABS: Methadone Screen,Urine Negative ng/ml (<300)
[2022-02-04 19:09] LABS: Opiate Screen,Urine Positive ng/ml (<300); Phencyclidine Screen,Urine Negative ng/ml (<25)
[2022-02-04 20:40] LABS: Cannabinoid Screen,Urine Negative ng/ml (<50)
== END ==
PROVIDERS: PCP Emergency Medicine; Visit Provider Emergency Medicine
DX: M25.512 Pain in left shoulder (principal)
CPT/HCPCS: 80305

== ENCOUNTER → 2022-04-05 09:05 | Outpatient (CLI) | payer MEDICARE, MEDICAID, SELFPAY ==
[2022-04-05 15:37] LABS: Amphetamine/Metha Screen,Urine Negative ng/ml (<1000)
[2022-04-05 15:38] LABS: Barbiturates Screen,Urine Negative ng/ml (<200); Benzodiazepines Screen,Urine Negative ng/ml (<200)
[2022-04-05 15:39] LABS: Cannabinoid Screen,Urine Negative ng/ml (<50)
[2022-04-05 15:40] LABS: Cocaine Screen,Urine Negative ng/ml (<300)
[2022-04-05 15:41] LABS: Methadone Screen,Urine Negative ng/ml (<300); Opiate Screen,Urine Negative ng/ml (<300)
[2022-04-05 15:43] LABS: Phencyclidine Screen,Urine Negative ng/ml (<25)
== END ==
PROVIDERS: PCP Emergency Medicine; Visit Provider Emergency Medicine
DX: M25.512 Pain in left shoulder (principal); Z79.899 Other long term (current) drug therapy
CPT/HCPCS: 80305

== ENCOUNTER → 2022-06-06 09:05 | Outpatient (CLI) | payer MEDICARE, MEDICAID, SELFPAY ==
[2022-06-06 15:41] LABS: Barbiturates Screen,Urine Negative ng/ml (<200)
[2022-06-06 15:42] LABS: Benzodiazepines Screen,Urine Negative ng/ml (<200); Cannabinoid Screen,Urine Positive ng/ml (<50)
[2022-06-06 15:43] LABS: Cocaine Screen,Urine Negative ng/ml (<300)
[2022-06-06 15:45] LABS: Methadone Screen,Urine Negative ng/ml (<300); Opiate Screen,Urine Positive ng/ml (<300)
[2022-06-06 15:46] LABS: Phencyclidine Screen,Urine Negative ng/ml (<25)
[2022-06-08 18:46] LABS: Amphetamine/Metha Screen,Urine Negative ng/ml (<1000)
== END ==
PROVIDERS: PCP Emergency Medicine; Visit Provider Emergency Medicine
DX: M25.512 Pain in left shoulder (principal); Z79.899 Other long term (current) drug therapy
CPT/HCPCS: 80305

== ENCOUNTER → 2022-07-01 15:37 | Outpatient (CLI) | payer MEDICARE, MEDICAID, SELFPAY ==
[2022-07-01 16:11] LABS: Basophils # 0.1 K/mm3 (0-0.2); Basophils % 0.6 % (0.1-2.0); Eosinophils % 0.2 % (0.1-12.0); Hematocrit 45.8 % (37.0-47.0); Hemoglobin 14.7 g/dL (12.2-16.2); Lymphocytes # 3.5 K/mm3 (0.7-4.5); Lymphocytes % 46.2 % (10-50); Mean Corpuscular Hemoglobin 31.7 pg (27.0-31.2); Mean Corpuscular Volume 99.1 fl (81-99); Mean Platelet Volume 9.6 fl (7.4-10.4); Monocytes # 0.4 K/mm3 (0.1-1.0); Neutrophils # 3.6 K/mm3 (1.8-7.8); Neutrophils % 47.9 % (37.0-80.0); Platelet Count 412 K/mm3 (142-424); Red Blood Count 4.63 M/mm3 (4.20-5.40); Red Cell Distribution Width 16.6 % (11.5-17.5); White Blood Count 7.6 K/mm3 (4.8-10.8)
[2022-07-01 16:37] LABS: Alanine Aminotransferase 23 U/L (12-78); Albumin Level 4.6 g/dl (3.5-5.0); Albumin/Globulin Ratio 1.7 (1.1-1.8); Alkaline Phosphatase 91 U/L (38-126); Anion Gap 12.6 mEq/L (5-15); Aspartate Amino Transferase 30 U/L (14-36); Bilirubin,Total 0.4 mg/dl (0.2-1.3); Blood Urea Nitrogen 14 mg/dl (7-17); Calcium 9.3 mg/dl (8.4-10.2); Carbon Dioxide 31 mmol/L (22.0-30.0); Chloride 97 mmol/L (98-107); Estimated Glomerular Filt Rate 62 ml/min (>60); GFR (African American) 75 ML/MIN (>60); Globulin 2.7 g/dL (1.3-3.2); Glucose 91 mg/dl (74-100); Potassium 4.6 mmoL/L (3.5-5.1); Sodium 136 mmol/L (136-145); Total Protein,Serum 7.3 g/dl (6.3-8.2)
[2022-07-01 17:00] LABS: Barbiturates Screen,Urine Negative ng/ml (<200); Benzodiazepines Screen,Urine Negative ng/ml (<200)
[2022-07-01 17:01] LABS: Cannabinoid Screen,Urine Positive ng/ml (<50); Cocaine Screen,Urine Negative ng/ml (<300)
[2022-07-01 17:02] LABS: Methadone Screen,Urine Negative ng/ml (<300)
[2022-07-01 17:03] LABS: Opiate Screen,Urine Positive ng/ml (<300)
[2022-07-01 17:04] LABS: Phencyclidine Screen,Urine Negative ng/ml (<25)
[2022-07-01 17:07] LABS: Amphetamine/Metha Screen,Urine Negative ng/ml (<1000)
[2022-07-01 17:23] LABS: Thyroid Stimulating Hormone 3.15 uIU/mL (0.465-4.68)
[2022-07-01 17:59] LABS: Vitamin B12 292 pg/mL (239-931)
== END ==
PROVIDERS: Nurse Practitioner Family; PCP Emergency Medicine; Visit Provider Emergency Medicine
DX: R25.1 Tremor, unspecified (principal); Z72.0 Tobacco use; Z79.899 Other long term (current) drug therapy
CPT/HCPCS: 80053; 80305; 82607; 82746; 84443; 85025

== ENCOUNTER → 2022-08-22 14:00 | Outpatient (CLI) | payer MEDICARE, MEDICAID, SELFPAY ==
[2022-08-22 14:05] LABS: Phencyclidine Screen,Urine Negative ng/ml (<25)
[2022-08-22 14:12] LABS: Amphetamine/Metha Screen,Urine Negative ng/ml (<1000); Barbiturates Screen,Urine Negative ng/ml (<200)
[2022-08-22 14:13] LABS: Benzodiazepines Screen,Urine Negative ng/ml (<200); Cannabinoid Screen,Urine Positive ng/ml (<50)
[2022-08-22 14:16] LABS: Opiate Screen,Urine Positive ng/ml (<300)
[2022-08-22 14:17] LABS: Cocaine Screen,Urine Negative ng/ml (<300); Methadone Screen,Urine Negative ng/ml (<300)
== END ==
PROVIDERS: PCP Emergency Medicine; Visit Provider Emergency Medicine
DX: M25.512 Pain in left shoulder (principal)
CPT/HCPCS: 80305

== ENCOUNTER → 2022-10-19 15:25 | Outpatient (CLI) | payer MEDICARE, MEDICAID, SELFPAY ==
[2022-10-19 20:32] LABS: Amphetamine/Metha Screen,Urine Negative ng/ml (<1000)
[2022-10-19 20:33] LABS: Barbiturates Screen,Urine Negative ng/ml (<200); Benzodiazepines Screen,Urine Negative ng/ml (<200)
[2022-10-19 20:34] LABS: Cannabinoid Screen,Urine Positive ng/ml (<50)
[2022-10-19 20:35] LABS: Cocaine Screen,Urine Negative ng/ml (<300); Methadone Screen,Urine Negative ng/ml (<300)
[2022-10-19 20:36] LABS: Opiate Screen,Urine Positive ng/ml (<300)
[2022-10-19 20:37] LABS: Phencyclidine Screen,Urine Negative ng/ml (<25)
== END ==
PROVIDERS: PCP Emergency Medicine; Visit Provider Emergency Medicine
DX: M25.512 Pain in left shoulder (principal)
CPT/HCPCS: 80305

== ENCOUNTER → 2023-01-06 08:52 | Outpatient (CLI) | payer MEDICARE, MEDICAID, SELFPAY ==
--- NOTE | 2023-01-06 08:53 | CT_ITS ---
FINAL REPORT TECHNIQUE: The patient was injected with IV contrast. Axial images were obtained of the chest by computed tomography. Precontrast images were also obtained. This study was performed with techniques to keep radiation doses as low as reasonably achievable (ALARA). Individualized dose reduction techniques using automated exposure control or adjustment of mA and/or kV according to the patient's size were employed. CLINICAL HISTORY: copd COMPARISON: 03/12/2020 CT low-dose FINDINGS: CT OF THE CHEST WITH AND WITHOUT CONTRAST: There is no axillary mass or adenopathy. There is no mediastinal or hilar mass. Heart size is normal. There is no pericardial or pleural effusion identified. There is no suspicious pulmonary nodule or infiltrate identified. There is mild emphysema and mild scarring. IMPRESSION: Mild emphysema and mild scarring. Reviewed, Interpreted and Dictated by Rodrigo Rush III, MD Transcribed by Sloane Cabral Authenticated and . [facility]
--- NOTE | 2023-01-06 08:53 | MM_ITS ---
PROCEDURE INFORMATION: Exam: MG Bilateral Screening 3D Mammography Exam date and time: 01/06/2023 10:01 AM Age: 67 years old Clinical indication: Screening examination; No personal or family history of breast cancer. The patient refused to complete the examination. There is no right CC view submitted. TECHNIQUE: Imaging protocol: Bilateral Screening tomosynthesis and 2D mammography including computer-aided detection (CAD) when performed. COMPARISON: MG SCBI MM Dig screening mamm BI w/CAD 08/13/2018 9:08 AM FINDINGS: MAMMOGRAPHY: Breast composition: The breast tissue is composed of scattered areas of fibroglandular density. Mass: None. Architectural distortion: None. Calcifications: No suspicious calcifications. Asymmetric density: None. Skin thickening: None. Axillary adenopathy: None. IMPRESSION: No mammographic evidence of malignancy given the limitation as described above. Annual screening is recommended unless otherwise clinically indicated. ASSESSMENT: BI-RADS Category 1: Negative
[2023-01-06 09:23] LABS: Blood Urea Nitrogen 11 mg/dl (7-17); Estimated Glomerular Filt Rate 83 ml/min (>60); GFR (African American) 100 ML/MIN (>60)
== END ==
LOC: RAD 08:52
PROVIDERS: PCP Emergency Medicine; Visit Provider Emergency Medicine
DX: J44.9 Chronic obstructive pulmonary disease, unspecified (principal); Z12.31 Encounter for screening mammogram for malignant neoplasm of breast
CPT/HCPCS: 36415; 71270; 77063; 77067; 82565; 84520; Q9967

== ENCOUNTER → 2023-04-10 23:08 | Outpatient (CLI) | payer MEDICARE, MEDICAID, SELFPAY ==
[2023-04-10 19:00] LABS: Microalbumin < 6.000 mg/L (0-16.7)
[2023-04-10 19:02] LABS: Amphetamine/Metha Screen,Urine Negative ng/ml (<1000)
[2023-04-10 19:03] LABS: Barbiturates Screen,Urine Negative ng/ml (<200)
[2023-04-10 19:04] LABS: Benzodiazepines Screen,Urine Negative ng/ml (<200)
[2023-04-10 19:05] LABS: Cannabinoid Screen,Urine Positive ng/ml (<50); Cocaine Screen,Urine Negative ng/ml (<300)
[2023-04-10 19:06] LABS: Methadone Screen,Urine Negative ng/ml (<300); Opiate Screen,Urine Negative ng/ml (<300)
[2023-04-10 19:08] LABS: Phencyclidine Screen,Urine Negative ng/ml (<25)
[2023-04-10 19:18] LABS: Creatinine,Urine Random 30 mg/dL (Not Estab.)
== END ==
PROVIDERS: PCP Internal Medicine; Visit Provider Internal Medicine
DX: Z79.899 Other long term (current) drug therapy (principal); M25.512 Pain in left shoulder; I10 Essential (primary) hypertension; F41.1 Generalized anxiety disorder; J44.9 Chronic obstructive pulmonary disease, unspecified; E55.9 Vitamin D deficiency, unspecified; Z68.1 Body mass index [BMI] 19.9 or less, adult; Z72.0 Tobacco use; E11.9 Type 2 diabetes mellitus without complications; E66.9 Obesity, unspecified
CPT/HCPCS: 80305; 82043; 82570

== ENCOUNTER 2023-05-17 12:37 | Outpatient (CLI) | payer MEDICARE, MEDICAID, SELFPAY ==
[2023-05-17 14:19] LABS: Benzodiazepines Screen,Urine Negative ng/ml (<200)
[2023-05-17 14:20] LABS: Amphetamine/Metha Screen,Urine Negative ng/ml (<1000); Barbiturates Screen,Urine Negative ng/ml (<200)
[2023-05-17 14:21] LABS: Cannabinoid Screen,Urine Positive ng/ml (<50)
[2023-05-17 14:22] LABS: Cocaine Screen,Urine Negative ng/ml (<300); Methadone Screen,Urine Negative ng/ml (<300)
[2023-05-17 14:23] LABS: Opiate Screen,Urine Positive ng/ml (<300)
[2023-05-17 14:24] LABS: Phencyclidine Screen,Urine Negative ng/ml (<25)
[2023-05-21 11:22] LABS: Alprazolam Negative (Cutoff=100); Benzodiazepines Positive ng/mL (Cutoff=100); Clonazepam Positive (.); Clonazepam Confirm 1334 ng/mL (Cutoff=100); Flurazepam Negative (Cutoff=100); Lorazepam Negative (Cutoff=100); Midazolam Negative (Cutoff=100); Opiates Negative (Cutoff=100); Oxycodone (GC/MS) 2492 ng/mL (Cutoff=100); Oxymorphone (GC/MS) >3000 ng/mL (Cutoff=100); Temazepam Negative (Cutoff=100); Triazolam Negative (Cutoff=100)
== END 2023-05-17 23:59 ==
PROVIDERS: PCP Family Medicine; Visit Provider Family Medicine
DX: Z79.899 Other long term (current) drug therapy (principal)
CPT/HCPCS: 80307; 80346; 80361; 80365; G0480

== ENCOUNTER 2023-05-23 14:37 | Outpatient (CLI) | payer MEDICARE, MEDICAID, SELFPAY ==
--- NOTE | 2023-05-23 14:47 | XR_ITS ---
FINAL REPORT CLINICAL HISTORY: mobility impingement COMPARISON: None FINDINGS: RIGHT SHOULDER: 3 views of the right shoulder were obtained. There is no acute fracture or dislocation. The joint spaces are intact. There is minimal hypertrophic change of the acromioclavicular joint. There is no soft tissue abnormality. IMPRESSION: No acute fracture Reviewed, Interpreted and Dictated by Dwain Oliva MD Transcribed by Jory Crockett Authenticated and [facility]
== END 2023-05-23 23:59 ==
LOC: RAD 14:38
PROVIDERS: PCP Internal Medicine; Visit Provider Internal Medicine
DX: Z74.09 Other reduced mobility (principal)
CPT/HCPCS: 73030

== ENCOUNTER 2023-07-03 11:36 | Outpatient (CLI) | payer MEDICARE, MEDICAID, SELFPAY ==
[2023-07-03 11:44] LABS: Basophils # 0.1 K/mm3 (0-0.2); Basophils % 0.6 % (0.1-2.0); Eosinophils % 0.2 % (0.1-12.0); Hematocrit 42.8 % (37.0-47.0); Hemoglobin 13.7 g/dL (12.2-16.2); Lymphocytes % 32.5 % (10-50); Mean Corpuscular Volume 96.9 fl (81-99); Mean Platelet Volume 8.7 fl (7.4-10.4); Monocytes # 0.5 K/mm3 (0.1-1.0); Monocytes % 5.1 % (1.7-9.3); Neutrophils # 5.8 K/mm3 (1.8-7.8); Neutrophils % 61.6 % (37.0-80.0); Platelet Count 330 K/mm3 (142-424); Red Blood Count 4.42 M/mm3 (4.20-5.40); Red Cell Distribution Width 17.1 % (11.5-17.5); White Blood Count 9.4 K/mm3 (4.8-10.8)
[2023-07-03 12:19] LABS: Alanine Aminotransferase 13 U/L (12-78); Albumin Level 4.2 g/dl (3.5-5.0); Albumin/Globulin Ratio 1.8 (1.1-1.8); Alkaline Phosphatase 81 U/L (38-126); Anion Gap 10.5 mEq/L (5-15); Aspartate Amino Transferase 23 U/L (14-36); Bilirubin,Total 0.4 mg/dl (0.2-1.3); Blood Urea Nitrogen 13 mg/dl (7-17); Calcium 9.5 mg/dl (8.4-10.2); Carbon Dioxide 33 mmol/L (22.0-30.0); Chloride 101 mmol/L (98-107); Chol/HDL Ratio 2.9 (1-3.5); Cholesterol 178 mg/dl (140-200); Estimated Glomerular Filt Rate 99 ml/min (>60); GFR (African American) 120 ML/MIN (>60); Globulin 2.4 g/dL (1.3-3.2); Glucose 97 mg/dl (74-100); HDL Cholesterol 62 mg/dl (40-60); Potassium 4.5 mmoL/L (3.5-5.1); Sodium 140 mmol/L (136-145); Total Protein,Serum 6.6 g/dl (6.3-8.2); Triglycerides 187 mg/dl (30-150); VLDL Cholesterol 37 mg/dL (0-40)
[2023-07-03 12:30] LABS: Direct LDL Cholesterol 70.49 mg/dL (100-129)
== END 2023-07-03 23:59 ==
LOC: LAB.DROPOF 11:37
PROVIDERS: PCP Internal Medicine; Visit Provider Internal Medicine
DX: R53.83 Other fatigue (principal); E78.5 Hyperlipidemia, unspecified; Z79.899 Other long term (current) drug therapy
CPT/HCPCS: 80053; 80061; 85025

== ENCOUNTER 2023-08-30 19:37 | Outpatient (CLI) | payer MEDICARE, MEDICAID, SELFPAY ==
[2023-08-30 21:45] LABS: 25-OH Vitamin D, Total < 12.8 ng/mL (30-100)
== END 2023-08-30 23:59 | disposition home or self-care (01) ==
LOC: LAB.DROPOF 19:38
PROVIDERS: PCP Internal Medicine; Visit Provider Internal Medicine
DX: E55.9 Vitamin D deficiency, unspecified (principal); Z79.899 Other long term (current) drug therapy
CPT/HCPCS: 82306

== ENCOUNTER 2023-12-28 08:54 | Outpatient (CLI) | payer MEDICARE, MEDICAID, SELFPAY ==
[2023-12-28 19:38] LABS: 25-OH Vitamin D, Total 113 ng/mL (30-100)
== END 2023-12-28 23:59 | disposition home or self-care (01) ==
LOC: LAB.DROPOF 12-29 10:59
PROVIDERS: PCP Internal Medicine; Visit Provider Internal Medicine
DX: R53.83 Other fatigue (principal); E55.9 Vitamin D deficiency, unspecified
CPT/HCPCS: 82306; 84443

== ENCOUNTER 2024-04-11 14:26 | Outpatient (CLI) | payer MEDICARE, MEDICAID, SELFPAY ==
[2024-04-11 18:30] LABS: 25-OH Vitamin D, Total 56.5 ng/mL (30-100)
== END 2024-04-11 23:59 | disposition home or self-care (01) ==
LOC: LAB.DROPOF 04-12 10:45
PROVIDERS: PCP Internal Medicine; Visit Provider Internal Medicine
DX: E55.9 Vitamin D deficiency, unspecified (principal)
CPT/HCPCS: 82306

== ENCOUNTER 2024-07-10 13:03 | Outpatient (CLI) | payer MEDICARE, MEDICAID, SELFPAY ==
--- NOTE | 2024-07-10 13:48 | CT_ITS ---
FINAL REPORT TECHNIQUE: Thin section axial images were obtained from the lung apices to the upper abdomen by computed tomography. Reformatted images were obtained and reviewed. This study was performed with techniques to keep radiation doses al low as reasonably achievable (ALARA). Individualized dose reduction techniques using automated exposure control or adjustment of mA and/or kV according to the patient's size were employed. CLINICAL HISTORY: lung cancer screening current smoker 1/2ppd x53 years COMPARISON: CT of the chest 01/06/2023 FINDINGS: CHEST CT LOW DOSE 69-year-old female, current smoker, 42-pumv-kysu history. CTDI vol (mGy): 2.9 DLP (mGy-cm): 110.20 There is no axillary adenopathy. There is no mediastinal or hilar mass or adenopathy. The heart is normal in size. Mild coronary artery calcifications are identified. There is no pericardial or pleural effusion. There is mild emphysema and mild pulmonary scarring. Lung window images demonstrate no suspicious infiltrate or nodule. Limited images of the upper abdomen are unremarkable. IMPRESSION: Lung-RADS category 1. Recommend 12 month follow up low dose chest CT. Reviewed, Interpreted and Dictated by Dwain Oliva MD Transcribed by Jory Crockett Authenticated and [facility]
== END 2024-07-10 23:59 | disposition home or self-care (01) ==
LOC: RT 13:04
PROVIDERS: PCP Internal Medicine; Visit Provider Internal Medicine Pulmonary Disease
DX: R06.09 Other forms of dyspnea (principal); F17.210 Nicotine dependence, cigarettes, uncomplicated
CPT/HCPCS: 71271; 94010

== ENCOUNTER 2024-08-07 11:40 | Outpatient (CLI) | payer MEDICARE, MEDICAID, SELFPAY ==
[2024-08-07 18:53] LABS: Basophils % 0.2 % (0.1-2.0); Eosinophils % 0.5 % (0.1-12.0); Hematocrit 36.8 % (37.0-47.0); Hemoglobin 11.3 g/dL (12.2-16.2); Lymphocytes # 2.1 K/mm3 (0.7-4.5); Lymphocytes % 36.4 % (10-50); Mean Corpuscular HGB Conc 30.7 g/dL (31.8-35.4); Mean Corpuscular Hemoglobin 29.7 pg (27.0-31.2); Mean Corpuscular Volume 96.8 fl (81-99); Mean Platelet Volume 10.7 fl (7.4-10.4); Monocytes # 0.4 K/mm3 (0.1-1.0); Neutrophils # 3.3 K/mm3 (1.8-7.8); Neutrophils % 56.7 % (37.0-80.0); Nucleated Red Blood Cells # 0 10^3/uL; Nucleated Red Blood Cells % 0 %; Platelet Count 272 K/mm3 (142-424); Red Cell Distribution Width 14.3 % (11.5-17.5); White Blood Count 5.9 K/mm3 (4.8-10.8)
[2024-08-07 19:03] LABS: Alanine Aminotransferase 11 U/L (12-78); Albumin Level 4.4 g/dl (3.5-5.0); Albumin/Globulin Ratio 1.6 (1.1-1.8); Alkaline Phosphatase 80 U/L (38-126); Aspartate Amino Transferase 25 U/L (14-36); Bilirubin,Total 0.4 mg/dl (0.2-1.3); Blood Urea Nitrogen 11 mg/dl (7-17); Calcium 9.5 mg/dl (8.4-10.2); Chloride 92 mmol/L (98-107); Chol/HDL Ratio 2.3 (1-3.5); Cholesterol 217 mg/dl (140-200); Estimated Glomerular Filt Rate 82 ml/min (>60); GFR (African American) 100 ML/MIN (>60); Globulin 2.8 g/dL (1.3-3.2); Glucose 98 mg/dl (74-100); HDL Cholesterol 93 mg/dl (40-60); Potassium 4.8 mmoL/L (3.5-5.1); Sodium 139 mmol/L (136-145); Total Protein,Serum 7.2 g/dl (6.3-8.2); Triglycerides 130 mg/dl (30-150); VLDL Cholesterol 26 mg/dL (0-40)
[2024-08-07 19:13] LABS: Carbon Dioxide 34 mmol/L (22.0-30.0)
[2024-08-07 19:14] LABS: Direct LDL Cholesterol 83.12 mg/dL (100-129)
[2024-08-07 19:15] LABS: 25-OH Vitamin D, Total 39.4 ng/mL (30-100)
[2024-08-07 19:30] LABS: Thyroid Stimulating Hormone 0.66 uIU/mL (0.465-4.68)
[2024-08-07 19:43] LABS: Anion Gap 11.8 mEq/L (5-15)
== END 2024-08-07 23:59 | disposition home or self-care (01) ==
LOC: LAB.DROPOF 08-08 10:08
PROVIDERS: PCP Family Medicine; Visit Provider Family Medicine
DX: Z13.1 Encounter for screening for diabetes mellitus (principal); I10 Essential (primary) hypertension; E55.9 Vitamin D deficiency, unspecified; F17.210 Nicotine dependence, cigarettes, uncomplicated
CPT/HCPCS: 80053; 80061; 82306; 83036; 84443; 85025

== ENCOUNTER 2025-04-09 07:30 | Outpatient (CLI) | payer MEDICARE, MEDICAID, SELFPAY ==
[2025-04-09 17:43] LABS: Hematocrit 35.3 % (37.0-47.0); Hemoglobin 10.4 g/dL (12.2-16.2); Immature Granulocytes % 0.3 %; Mean Corpuscular HGB Conc 29.5 g/dL (31.8-35.4); Mean Corpuscular Hemoglobin 28.2 pg (27.0-31.2); Mean Corpuscular Volume 95.7 fl (81-99); Nucleated Red Blood Cells % 0 %; Platelet Count 258 K/mm3 (142-424); Red Blood Count 3.69 M/mm3 (4.20-5.40); Red Cell Distribution Width-SD 51.9 fL; White Blood Count 5.8 K/mm3 (4.8-10.8)
[2025-04-09 18:32] LABS: Alanine Aminotransferase 13 U/L (12-78); Albumin Level 4.3 g/dl (3.5-5.0); Albumin/Globulin Ratio 1.8 (1.1-1.8); Alkaline Phosphatase 84 U/L (38-126); Aspartate Amino Transferase 26 U/L (14-36); Bilirubin,Total 0.3 mg/dl (0.2-1.3); Blood Urea Nitrogen 11 mg/dl (7-17); Calcium 9.2 mg/dl (8.4-10.2); Chloride 92 mmol/L (98-107); Creatinine,Serum 0.70 mg/dl (0.52-1.04); Estimated Glomerular Filt Rate 82 ml/min (>60); GFR (African American) 100 ML/MIN (>60); Globulin 2.4 g/dL (1.3-3.2); Glucose 98 mg/dl (74-100); Potassium 4.9 mmoL/L (3.5-5.1); Sodium 139 mmol/L (136-145); Total Protein,Serum 6.7 g/dl (6.3-8.2)
[2025-04-09 20:16] LABS: Anion Gap 12.9 mEq/L (5-15); Carbon Dioxide 39 mmol/L (22.0-30.0)
--- OUTSIDE RECORDS SUMMARY | 2025-04-11 08:08 | XMS_ITS | Clinical Summary ---
Author Organization [facility] Address [address] [place] [address] Care Team Providers Care Fry Cook Name Role Phone Honorio Rockwell MD Primary Care Provider Allergies No known active allergies Medications oxyCODONE-aceta minophen (PERCOCET) 7.5-325 MG per tablet Take 1 tablet by mouth 4 (Four) Times a Day. Active hydrOXYzine (ATARAX) 10 MG tablet Take 25 mg by mouth 2 (Two) Times a Day. Active omeprazole (priLOSEC) 20 MG capsule Take 20 mg by mouth Daily. Active lisinopril (PRINIVIL,ZESTR IL) 10 MG tablet Take 20 mg by mouth Daily. Active amLODIPine (NORVASC) 10 MG tablet Take 2.5 mg by mouth Daily. Active metoprolol succinate XL (TOPROL-XL) 50 MG 24 hr tablet Take 25 mg by mouth 2 (Two) Times a Day. Active acetaminophen (TYLENOL) 325 MG tablet Take 2 tablets by mouth Every 4 (Four) Hours As Needed for Mild Pain . 1 Active aspirin 81 MG EC tablet Take 1 tablet by mouth Daily. 1 Active albuterol sulfate HFA 108 (90 Base) MCG/ACT inhaler Inhale 2 puffs 4 (Four) Times a Day. 6.7 g 1 Active gabapentin (NEURONTIN) 800 MG tablet Take 0.5 tablets by mouth 3 (Three) Times a Day. Home med-- Suggested pt take ONLY 1/2 of home dose tid. 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 Anxiety associated with depression 03/28/2021 Essential hypertension 03/28/2021 Anemia 03/28/2021 Thrombocytosis 03/28/2021 COPD (chronic obstructive pulmonary disease) Pneumonia due to COVID-19 virus 03/28/2021 Tobacco abuse 03/28/2021 Elevated troponin 03/28/[address] scan 03/28/2021 Resolved Problems Problem Noted Date Diagnosed Date Resolved Date AMS (altered mental status) 03/28/2021 04/01/2021 Family History Medical History Relation Name Comments No Known Problems Mother Relation Name Status Comments Mother Social History Tobacco Use Types Packs/Day Years Used Date Smoking Tobacco: Every Day Alcohol Use Standard Drinks/Week Comments Not Currently 0 (1 standard drink = 0.6 oz pur e alcohol) Abuse Screen Answer Date Recorded Unsafe at Home or Work/School Not on file Feels Threatened by Someone? Not on file Does Anyone Keep You from Co ntacting Others or Doint Things Outside the Home? Not on file 02/10/2023 Physical Sign of Abuse Present Not on file 1 Housing Stability Answer Date Recorded Current Living Arrangements Not on file 01/29 Potentially Unsafe Housing Conditions Not on jess e 02/10/2023 Family and Community Support Answer Maxwell e Recorded Help with Day-to-Day Activities Not on file 02/10/2023 Lonely or Isolated Not on file 02/10/2023 Employment Answer Date Recorded Do you want help finding or keeping work or a adriane b? Not on file 02/10/2023 Disabilities Answer Date Recorded Concentrating, Remembering, or Making Decisions Difficulty Not on file 02/10/2023 Doing Errands Independently Difficulty Not on fi le 02/10/2023 Education Answer Date Recorded Help with school or training? Not on file Preferred Language Not on file 02/10/2023 Comments No Sex and Gender Information Value Date Recorded Sex Assigned at Not on file Legal Sex Female 6:09 PM EST Gender Identity Not on file Sexual Orientation Not on file Last Filed Vital Signs Vital Sign Reading Time Taken Comments Blood Pressure 121/82 04/08/2021 1:00 PM EST Pulse 74 04/08/2021 1:00 PM EST Temperature 36.6 C (97.9 F) 04/01/2021 11:53 AM EST Respiratory Rate 16 04/01/2021 11:53 AM EST Oxygen Saturation 93% 04/01/2021 8:54 AM EST Inhaled Oxygen Concentration - - Weight 49.9 kg (110 lb) 04/08/2021 1:00 PM EST Height 154.9 cm (5' 1 ) 04/08/2021 1:00 PM EST Body Mass Index 20.78 04/08/2021 1:00 PM EST Plan of Treatment Health Maintenance Due Date Last Done Comments DXA SCAN 1955 Pneumococcal Vaccine 50+ (1 of 2 - PCV) 1972 TDAP/TD VACCINES (1 - Tdap) 1972 MAMMOGRAM 1993 COLOGUARD 1998 COLON CANCER SCREENING 5 YEAR SIGMOIDOSCOPY 1998 COLONOSCOPY 1998 [address] CANCER SCREENING 1998 CT COLONOGRAPHY 1998 FECAL OCCULT BLOOD TEST 1998 FIT Testing (1 year) 1998 ZOSTER VACCINE (1 of 2) 2003 ANNUAL PHYSICAL 04/01/2021 HEPATITIS C SCREENING 04/01/2021 INFLUENZA VACCINE 11/29/2024 COVID-19 Vaccine ( season) 2024 Insurance [employer] MEDICARE A & B Advance Directives * CPR (Attempt to Resuscitate) (Latest Code Status on File) Date Activated Date Inactivated Comments 03/28/2021 12:52 AM 04/01/2021 3:25 PM Question Answer Comments Code Status (Patient has no pulse and is not breathing): CPR (Attempt to Resuscitate) Medical Interventions (Patie nt has pulse or is breathing): Full Support Level Of Support Discussed With: Patient Care Teams Fry Cook Relationship Specialty Start Date End Date Honorio Rockwell MD PCP - General Emergency Medicine 03/27/21
== END 2025-04-09 23:59 ==
LOC: LAB.DROPOF 04-11 07:31
PROVIDERS: PCP Student in an Organized Health Care Education/Training Program; Visit Provider Family Medicine
DX: D64.9 Anemia, unspecified (principal); J44.89 Other specified chronic obstructive pulmonary disease
CPT/HCPCS: 80053; 85025